=== PATIENT | female | born 1985 | race Caucasian/White ===

== ENCOUNTER 2020-11-17 21:45 | Emergency (ER) | payer SELFPAY ==
[~2020-11-17] VITALS: Ht 172.7 cm; Wt 81.6 kg
[2020-11-17] MEDS ORDERED: ACETAMINOPHEN 325 MG TAB PO STA (21:56)
[2020-11-17] MEDS ORDERED: ACETAMINOPHEN 325 MG TAB ONE (22:07)
== END 2020-11-17 23:32 | disposition home or self-care (01) ==
LOC: ER 22:15
DX: R50.9 Fever, unspecified (principal); B34.9 Viral infection, unspecified
CPT/HCPCS: 87400; 99283